=== PATIENT | female | born 1995 | race Caucasian/White ===

== ENCOUNTER 2017-03-26 21:40 | Emergency (ER) | payer OTHER ==
[~2017-03-26] VITALS: Ht 157.5 cm; Wt 118.8 kg
[2017-03-26 21:50] VITALS: BP 167/95
--- NOTE | 2017-03-26 22:03 | PHYS DOC ---
Past Medical History Past Medical History: Anxiety, Depression, Diabetes-Type II Additional Past Medical Histor: CHRONIC BACK PAIN Past Surgical History: No Surgical History Alcohol Use: None Drug Use: None Adult General Chief Complaint Chief Complaint: FINGER INJURY HPI HPI Patient is a 21 year old female who presents with right pinky injury. She was running and fell and extended her right hand caught it on the ground. She denies any obvious injuries or deformity to it. She states it hurts in the distal aspect of her finger. She also complains of a mild headache. But denies falling or hitting her head or neck. Review of Systems Review of Systems Constitutional: Denies fever or chills [] Eyes: Denies change in visual acuity, redness, or eye pain [] HENT: Denies nasal congestion or sore throat [] Respiratory: Denies cough or shortness of breath [] Cardiovascular: No additional information not addressed in HPI [] GI: Denies abdominal pain, nausea, vomiting, bloody stools or diarrhea [] : Denies dysuria or hematuria [] Musculoskeletal: Denies back pain, positive for right finger pain Integument: Denies rash or skin lesions [] Neurologic: Denies headache, focal weakness or sensory changes [] Endocrine: Denies polyuria or polydipsia [] Current Medications Current Medications Current Medications Medications (Trade) Dose Ordered Sig/[facility] Start Time Stop Time Status Last Admin Dose Admin Acetaminophen (Tylenol) 1,000 mg 1X ONCE 03/26/17 22:45 03/26/17 22:46 UNV 03/26/17 22:44 1,000 MG Allergies Allergies Allergies Coded Allergies Type Severity Reaction Last Updated Verified Penicillins Allergy Intermediate 09/27/15 Yes Physical Exam Physical Exam Constitutional: Well developed, well nourished, no acute distress, non-toxic appearance. [] HENT: Normocephalic, atraumatic, bilateral external ears normal, oropharynx moist, no oral exudates, nose normal. [] Eyes: PERRLA, EOMI, conjunctiva normal, no discharge. [] Neck: Normal range of motion, no tenderness, supple, no stridor. [] Cardiovascular:Heart rate regular rhythm, no murmur [] Lungs & Thorax: Bilateral breath sounds clear to auscultation [] Abdomen: Bowel sounds normal, soft, no tenderness, no masses, no pulsatile masses. [] Skin: Warm, dry, no erythema, no rash. [] Back: No tenderness, no CVA tenderness. [] Extremities: Tender palpation over the right fifth digit at the DIP joint, no tenderness at the PIP her proximal phalanx, no obvious deformity, able flex and extend at the PIP and DIP on the fifth digit with discomfort, Refill less than 2 seconds, no cyanosis, no clubbing, ROM intact, no edema. [] Neurologic: Alert and oriented X 3, normal motor function, normal sensory function, no focal deficits noted. [] Psychologic: Affect normal, judgement normal, mood normal. [] Current Patient Data Vital Signs Vital Signs Date Time Temp Pulse Resp B/P (MAP) Pulse Ox O2 Delivery O2 Flow Rate FiO2 03/26/17 21:50 98.0 116 18 97 Room Air 98.0 EKG EKG [] Radiology/Procedures Radiology/Procedures 3 views of the right hand is not show any obvious fractures, foreign bodies or soft tissue abnormality, she does have a nutrient vein in the distal spec to the proximal phalanx. Impressions: Finger pain Course & Med Decision Making Course & Med Decision Making Pertinent Labs and Imaging studies reviewed. (See chart for details) Trace are nonacute. We'll neda tape fingers together she will be off work for 2 days. Tylenol as needed for pain or discomfort. Return precautions given. She is agreeable to plan of being discharged in stable condition this time. Dragon Disclaimer Dragon Disclaimer This electronic medical record was generated, in whole or in part, using a voice recognition dictation system. Departure Departure Impression: Primary Impression: Finger injury Disposition: 01 HOME, SELF-CARE Condition: STABLE Referrals: GEOVANI GUERRERO MD (PCP) Patient Instructions: Jammed Finger Additional Instructions: I do not see anything broken on your x-rays. You can use Tylenol as needed for pain. We neda taped her fingers together and you can undo it in the next one- two days. If you develop worsening pain, numbness in your finger, your finger turns blue or purple you have other concerns please return back to ER. He can use ice for the first 24 hours to help the swelling down. Problem Qualifiers Primary Impression: Finger injury Encounter type: initial encounter Laterality: right Qualified Codes: S69.91XA - Unspecified injury of right wrist, hand and finger(s), initial encounter DAVIED,EMI F MD Mar 26, 2017 22:03
[2017-03-26] MEDS ORDERED: ACETAMINOPHEN 500 MG TABLET PO ONE (22:45)
--- NOTE | 2017-03-27 07:55 | RAD ---
Indication fall. Pain particularly associated with the fifth digit. An AP view of the right hand was obtained as well as oblique and lateral imaging targeted to the small finger. No bony abnormality is seen
== END 2017-03-26 22:57 | disposition home or self-care (01) ==
LOC: ER 21:40
DX: S69.91XA Unspecified injury of right wrist, hand and finger(s), initial encounter (principal); R51 Headache; G89.29 Other chronic pain; E11.9 Type 2 diabetes mellitus without complications; Z88.0 Allergy status to penicillin; W18.39XA Other fall on same level, initial encounter; Y93.89 Activity, other specified; Y99.8 Other external cause status; Y92.89 Other specified places as the place of occurrence of the external cause
CPT/HCPCS: 73140; 99284

== ENCOUNTER 2017-09-27 23:48 | Emergency (ER) | payer OTHER ==
[2017-09-28] MEDS: BENZONATATE 100 MG CAPSULE. PO (00:09)
[2017-09-28] MEDS: predniSONE 20 MG TABLET PO (00:09)
[2017-09-28] MEDS: IPRATRPIUM/ALBUTEROL 0.5/2.5MG 3 ML NEBU. NEB (00:12)
== END 2017-09-28 00:25 | disposition home or self-care (01) ==
LOC: ER 23:48
DX: J20.9 Acute bronchitis, unspecified (principal); G89.29 Other chronic pain; E11.9 Type 2 diabetes mellitus without complications; Z88.0 Allergy status to penicillin
CPT/HCPCS: 94640; 99283-25; J7512; J7620

== ENCOUNTER 2017-10-26 18:02 | Inpatient (IN) | payer MEDICARE, OTHER ==
[2017-10-26 19:06] LABS: URINE HCG POC HCG NEGATIVE (Negative)
[2017-10-26 19:20] LABS: ADD MAN DIFF? NO
[2017-10-26 19:22] LABS: BASO # 0.1 x10^3/uL (0.0-0.2); BASO % 1 % (0-3); EOS # 0.2 x10^3/uL (0.0-0.7); EOS % 2 % (0-3); HEMOGLOBIN 13.3 g/dL (12.0-15.5); LYMPH # 2.7 x10^3/uL (1.0-4.8); LYMPH % 27 % (24-48); MEAN CORPUSCULAR HEMOGLOBIN 28 pg (25-35); MEAN CORPUSCULAR HGB CONC 34 g/dL (31-37); MEAN CORPUSCULAR VOLUME 83 fL (79-100); MONO # 0.6 x10^3/uL (0.0-1.1); MONO % 6 % (0-9); NEUT # 6.3 x10^3uL (1.8-7.7); NEUT % 64 % (31-73); PLATELET COUNT 204 x10^3/uL (140-400); RED BLOOD COUNT 4.72 x10^6/uL (3.50-5.40); WHITE BLOOD COUNT 9.9 x10^3/uL (4.0-11.0)
[2017-10-26 19:37] LABS: D-DIMER < 0.27 ug/mlFEU (0.00-0.50)
[2017-10-26 19:43] LABS: ANION GAP 10 (6-14); BLOOD UREA NITROGEN 13 mg/dL (7-20); BUN/CREATININE RATIO 16 (6-20); CARBON DIOXIDE 23 mmol/L (21-32); CHLORIDE 110 mmol/L (98-107); CREATININE 0.8 mg/dL (0.6-1.0); GFR 91.4; GLUCOSE 93 mg/dL (70-99); POTASSIUM 3.9 mmol/L (3.5-5.1); SODIUM 143 mmol/L (136-145)
[2017-10-26 19:48] LABS: ALBUMIN 3.5 g/dL (3.4-5.0); ALBUMIN/GLOBULIN RATIO 0.8 (1.0-1.7); ALK PHOS 92 U/L (46-116); ALT (SGPT) 26 U/L (14-59); AST (SGOT) 21 U/L (15-37); TOTAL BILIRUBIN 0.3 mg/dL (0.2-1.0); TOTAL PROTEIN 7.7 g/dL (6.4-8.2)
[2017-10-26 20:06] LABS: CKMB INDEX 0.7 % (0-4); CKMB MASS 0.8 ng/mL (0.0-3.6); CREATINE KINASE 116 U/L (26-192)
[2017-10-26] MEDS ORDERED: MORPHINE SULFATE 2 MG/ML DISP.SYRIN. IV ×2 (20:45)
[2017-10-26] MEDS ORDERED: NITROGLYCERIN SUBLINGUAL 0.4 MG BOTTLE OF 25. SL ×2 (20:45)
[2017-10-26] MEDS ORDERED: ONDANSETRON PF 4 MG/2 ML VIAL. IV ×2 (20:45)
[2017-10-26 20:51] LABS: TROPONINI < 0.017 ng/mL (0.000-0.055)
[2017-10-26] MEDS: ASPIRIN 325 MG TABLET PO ×2 (20:57)
[2017-10-27 04:25] LABS: ADD MAN DIFF? NO
[2017-10-27 04:31] LABS: BASO # 0.1 x10^3/uL (0.0-0.2); BASO % 1 % (0-3); EOS # 0.2 x10^3/uL (0.0-0.7); EOS % 2 % (0-3); HEMATOCRIT 38.4 % (36.0-47.0); LYMPH # 3.3 x10^3/uL (1.0-4.8); LYMPH % 32 % (24-48); MEAN CORPUSCULAR HEMOGLOBIN 28 pg (25-35); MEAN CORPUSCULAR HGB CONC 34 g/dL (31-37); MEAN CORPUSCULAR VOLUME 84 fL (79-100); MONO # 0.7 x10^3/uL (0.0-1.1); MONO % 6 % (0-9); NEUT # 6.1 x10^3uL (1.8-7.7); NEUT % 59 % (31-73); PLATELET COUNT 202 x10^3/uL (140-400); RED CELL DISTRIBUTION WIDTH 12.9 % (11.5-14.5); WHITE BLOOD COUNT 10.2 x10^3/uL (4.0-11.0)
[2017-10-27 04:44] LABS: ANION GAP 10 (6-14); BLOOD UREA NITROGEN 11 mg/dL (7-20); CALCIUM 9.1 mg/dL (8.5-10.1); CARBON DIOXIDE 23 mmol/L (21-32); CHLORIDE 107 mmol/L (98-107); CREATININE 0.7 mg/dL (0.6-1.0); GFR 106.7; GLUCOSE 88 mg/dL (70-99); POTASSIUM 3.5 mmol/L (3.5-5.1); SODIUM 140 mmol/L (136-145)
[2017-10-27 04:54] LABS: TROPONINI < 0.017 ng/mL (0.000-0.055)
[2017-10-27 07:47] LABS: POC GLUCOSE 89 mg/dL (70-99)
[2017-10-27 08:42] LABS: TROPONINI < 0.017 ng/mL (0.000-0.055)
[2017-10-27] MEDS ORDERED: PNEUMOCOCCAL VAX SCREEN BY RX. MC ×2 (09:00)
[2017-10-27 11:36] LABS: POC GLUCOSE 88 mg/dL (70-99)
[2017-10-27 11:39] LABS: CHOLESTEROL 133 mg/dL (0-200); HDLC 32 mg/dL (40-60); LDLC 80 mg/dL (0-100); NON-HDL CHOLESTEROL 101 mg/dL (0-129); TRIGLYCERIDES 105 mg/dL (0-150); VLDLC 21 mg/dL (0-40)
[2017-10-27 11:42] LABS: CHOLESTEROL/HDL RATIO 4.2
[2017-10-27 11:48] LABS: THYROID STIM HORMONE (TSH) 4.148 uIU/mL (0.358-3.74)
[2017-10-27] MEDS: PANTOPRAZOLE 40 MG TABLET.DR. PO ×2 (14:26)
[2017-10-27] MEDS: PNEUMOC CONJ VACC 23-VALENT 0.5 ML VIAL. VAX IM ×2 (14:30)
== END 2017-10-27 15:07 | disposition home or self-care (01) | DRG 392 ==
LOC: ER 18:02 → 6 SOUTH 20:20
PROVIDERS: Internal Medicine
DX: K21.9 Gastro-esophageal reflux disease without esophagitis (principal); E66.01 Morbid (severe) obesity due to excess calories; Z68.42 Body mass index [BMI] 45.0-49.9, adult; E11.9 Type 2 diabetes mellitus without complications; J45.909 Unspecified asthma, uncomplicated; F32.9 Major depressive disorder, single episode, unspecified; Z88.0 Allergy status to penicillin; M54.9 Dorsalgia, unspecified; G89.29 Other chronic pain; F25.9 Schizoaffective disorder, unspecified
CPT/HCPCS: 36415; 71046; 80048; 80053; 80061; 81025; 82553; 82962; 84443; 84484; 85025; 85379; 90732; 93005; 93306; 99285-25